=== PATIENT | male | born 1985 | race Caucasian/White ===

== ENCOUNTER 2020-01-02 21:53 | Emergency (ER) | payer BC ==
--- NOTE | 2020-01-02 22:28 | ER ---
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 Abrasion noted to the right wrist, pt states he needs a tetanus booster. Coronavirus screen: Proceed with normal triage. Ebola Screen: Patient negative for fever greater than or equal to 101.5 degrees Fahrenheit, and additional compatible Ebola Virus Disease symptoms Patient denies exposure to infectious person. Patient denies travel to an Ebola-affected area in the 21 days before illness onset. No symptoms or risks identified at this time. Initial Sepsis Screen: Does the patient meet any 2 criteria? No. Patient's initial sepsis screen is negative. Does the patient have a suspected source of infection? No. Patient's initial sepsis screen is negative. Risk Assessment: Do you want to hurt yourself or someone else? Patient reports no desire to harm self or others. Onset of symptoms was January 02, 2020. 22:03 Method Of Arrival: Ambulatory sg 22:03 Acuity: POLY 5 sg Triage Assessment: 22:10 General: Appears in no apparent distress. Behavior is calm, cooperative, appropriate wh for age. Historical: - Allergies: 22:04 No Known Allergies; sg - Home Meds: 22:04 None [Active]; sg - PMHx: 22:04 None; sg - PSHx: 22:04 None; sg - Immunization history:: Adult Immunizations not up to date, Last tetanus immunization: > 10 years ago. - Social history:: Smoking status: Patient denies any tobacco usage or history of. Screenin:10 Abuse screen: Denies threats or abuse. Denies injuries from another. Nutritional wh screening: No deficits noted. Tuberculosis screening: No symptoms or risk factors identified. Fall Risk None identified. Assessment: 22:10 General: Appears in no apparent distress. Behavior is calm, cooperative, appropriate wh for age. Pain: Denies pain. Neuro: Level of Consciousness is awake, alert, obeys commands, Oriented to person, place, time, situation, Appropriate for age. Cardiovascular: Capillary refill < 3 seconds. Respiratory: Airway is patent Respiratory effort is even, unlabored, Respiratory pattern is regular, symmetrical. GI: Abdomen is flat, non-distended. : No signs and/or symptoms were reported regarding the genitourinary system. EENT: No signs and/or symptoms were reported regarding the EENT system. Derm: Skin is intact, is healthy with good turgor, Skin is pink, warm \T\ dry. normal, Superficial laceration on right wrist. Musculoskeletal: Circulation, motion, and sensation intact. Vital Signs: 22:03 BP 136 / 62; Pulse 70; Resp 18; Temp 97.7; Pulse Ox 100% on R/A; Pain 0/10; sg ED Course: 21:59 Patient arrived in ED. cf2 22:01 Donaldo Woody PA is PHCP. cp 22:02 Allen Lopez MD is Attending Physician. roxi 22:02 Christopher Chisholm is Primary Nurse. 22:03 Arm band placed on. sg 22:04 Triage completed. sg 22:08 Patient has correct armband on for positive identification. Pulse ox on. NIBP on. sg 22:27 No provider procedures requiring assistance completed. Patient did not have IV access sg during this emergency room visit. Administered Medications: No medications were administered Outcome: 22:27 Discharge ordered by . 22:27 Medical screen evaluation completed per provider. Patient declined treatment. sg 22:27 Condition: stable 22:27 Instructed on follow up and referral plans. safety practices, wound care. 22:28 Patient left the ED. sg Signatures: Zackary Talbot, RN RN Donaldo Wong PA PA cp Habalo, Winsy Eloise Melton cf2
--- NOTE | 2020-01-02 22:29 | EDPHYS ---
Physician Documentation [facility] Name: Mor Carty Jr Age: 34 yrs Sex: Male : 1985 Arrival Date: 01/02/2020 Time: 21:59 Bed 17 Private MD: ED Physician Allen Lopez HPI: 01/01 22:15 This 34 yrs old Male presents to ER via Ambulatory with complaints of CUT ON cp WRIST. 22:15 The patient or guardian reports a laceration, superficial. 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 Onset: The symptoms/episode began/occurred today. Associated signs and symptoms: Pertinent positives: active bleeding. Historical: - Allergies: 22:04 No Known Allergies; sg - Home Meds: 22:04 None [Active]; sg - PMHx: 22:04 None; sg - PSHx: 22:04 None; sg - Immunization history:: Adult Immunizations not up to date, Last tetanus immunization: > 10 years ago. - Social history:: Smoking status: Patient denies any tobacco usage or history of. ROS: 22:20 Skin: Positive for laceration(s), of the volar surface of right wrist. cp 22:20 Constitutional: Negative for fever. cp 22:20 Respiratory: Negative for cough, wheezing. 22:20 All other systems are negative. cp Exam: 22:22 Skin: injury, laceration(s), the wound is approximately 2.5 cm(s), of the volar cp surface of right wrist, that can be described as clean, linear, without bleeding, superficial. 22:22 Neuro: Sensation: is normal. Vital Signs: 22:03 BP 136 / 62; Pulse 70; Resp 18; Temp 97.7; Pulse Ox 100% on R/A; Pain 0/10; sg MDM: 22:04 Patient medically screened. cp 22:25 Data reviewed: vital signs, nurses notes. cp Administered Medications: No medications were administered Disposition: 22:30 Chart complete. cp 01/02 03:13 Co-signature as Attending Physician, Allen Lopez MD I agree with the assessment and tw4 plan of care. Disposition: 01/02/20 22:27 Discharged to Home as Medical Screen. Impression: Laceration without foreign body of wrist - right, superficial. - Condition is Stable. - Discharge Instructions: Laceration Care, Adult. - Medication Reconciliation Form, Thank You Letter, Antibiotic Education, Prescription Opioid Use form. - Follow up: Private Physician; When: 2 - 3 days; Reason: Wound Recheck, tetanus booster. - Problem is new. - Symptoms are unchanged. Signatures: Zackary Talbot RN RN sg Donaldo Woody PA PA cp Wadley, Terrence, MD MD tw4 Corrections: (The following items were deleted from the chart) 01/01 22:28 22:27 01/02/2020 22:27 Discharged to Home as Medical Screen. Impression: Laceration sg without foreign body of wrist - right, superficial. Condition is Stable. Forms are Medication Reconciliation Form, Thank You Letter, Antibiotic Education, Prescription Opioid Use. Follow up: Private Physician; When: 2 - 3 days; Reason: Wound Recheck, tetanus booster. Problem is new. Symptoms are unchanged. cp
[2020-01-02 22:35] VITALS: BP 136/62; TEMP 97.7; O2SAT 100
== END 2020-01-02 22:28 | disposition home or self-care (01) ==
LOC: ER 21:53
DX: S61.511A Laceration without foreign body of right wrist, initial encounter (principal); W26.8XXA Contact with other sharp object(s), not elsewhere classified, initial encounter; Y93.89 Activity, other specified; Y92.017 Garden or yard in single-family (private) house as the place of occurrence of the external cause
CPT/HCPCS: 99283

== ENCOUNTER 2023-06-18 21:48 | Emergency (ER) | payer BC ==
--- OUTSIDE RECORDS SUMMARY | 2023-06-18 21:52 | XMS REPORT | Continuity of Care Document ---
:1985 Author Organization [facility] t Address [address] [facility] [address] [place] [address] Care Team Providers Name Role Phone Tong Ha Lauren Primary Care Physician Lilia PAL, Elva Hager Attending Clinician Unavailable Only, Ang Db Test Attending Clinician Unavailable Unknown, Attending Attending Clinician Unavailable UNKNOWN, ATTENDING Attending Clinician Unavailable Payers Payer Name Policy Type Policy Number Effective Date Expiration Date S ource Problems This patient has no known problems. Allergies, Adverse Reactions, Alerts Allergy Allergy Status Severity Reaction(s) Onset Inactive Treating Comm ents Source Name Type Date Date Clinician NO KNOWN Drug Active [facility] ALLERGIE Class [facility] [place] [place] Social History Social Habit Start Date Stop Date Quantity Comments Source Exposure to Not sure [facility] SARS-CoV-2 (event) [facility] Branch Sex Assigned At [birth year] [facility] 00:00:00 00:00:00 [facility] Smoking Status Start Date Stop Date Source Unknown if ever smoked [facility] Medications This patient has no known medications. Procedures This patient has no known procedures. Encounters Start End Encounter Admission Attending Care Care Encounter Source Date/Time Date/Time Type Type Clinicians Facility Department ID 2021-03-21 2021-03-21 Letter NAZARIO Rodrigues [id number] [facility] 00:00:00 00:00:00 (Out) Elva AGUILA [id number] [facility] [id number] Met[place] as [id number] [address] 2021-03-19 2021-03-19 Outpatient [facility] [id number] [facility] 14:00:00 14:00:00 [id number] 2021-03-19 2021-03-19 Laboratory Only, Ang Db Test [facility] [id number] [facility] 13:41:56 13:56:56 Only Unknown, Attending [facility] [id number] [facility] [id number] Meet as Ernesto?Blea [id number] [facility] [address] Medical Office Building 2021-03-19 2021-03-19 Outpatient R UNKNOWN, [facility] [id number] [facility] 13:45:00 13:45:00 ATTENDING ity [facility] Results This patient has no known results.
--- NOTE | 2023-06-19 00:45 | EDPHYS ---
Physician Documentation [facility] Name: Mor Carty Jr Age: 38 yrs Sex: Male : 1985 Arrival Date: 06/18/2023 Time: 21:48 Bed IW4 Private MD: ED Physician Zeferino Silver HPI: 06/18 22:50 This 38 yrs old Male presents to ER via Ambulatory with complaints of Flu Symptoms. cp 22:50 The patient or guardian reports cough, that is intermittent, flu symptoms, low-grade cp fever, body aches. 22:50 Onset: The symptoms/episode began/occurred 2 day(s) ago. Associated signs and symptoms: cp Pertinent positives: sore throat, Pertinent negatives: diarrhea, vomiting. Severity of symptoms: in the emergency department the symptoms are unchanged despite home interventions. Historical: - Allergies: 22:38 No Known Allergies; bp - Home Meds: 22:38 None [Active]; bp - PMHx: 22:38 None; bp - Immunization history:: Adult Immunizations up to date. - Social history:: Smoking status: Patient denies any tobacco usage or history of. ROS: 22:55 Constitutional: Positive for body aches, fever, Negative for poor PO intake, cp 22:55 Eyes: Negative for injury, pain, redness, and discharge, cp 22:55 ENT: Positive for sore throat, Negative for drainage from ear(s), ear pain, difficulty swallowing, difficulty handling secretions, 22:55 Respiratory: Positive for cough, Negative for shortness of breath, wheezing, 22:55 Abdomen/GI: Negative for abdominal pain, vomiting, diarrhea, constipation, 22:55 Skin: Negative for rash, 22:55 Neuro: Negative for altered mental status, 22:55 All other systems are negative, Exam: 23:00 Constitutional: The patient appears in no acute distress, alert, awake, comfortable, cp non-toxic, well developed, well nourished, 23:00 Head/Face: Normocephalic, atraumatic. cp 23:00 Eyes: Periorbital structures: appear normal, Conjunctiva: normal, no exudate, no injection, Sclera: no appreciated abnormality, Lids and lashes: appear normal, bilaterally, 23:00 ENT: External ear(s): are unremarkable, Ear canal(s): are normal, clear, TM's: dullness, bilaterally, Nose: is normal, Mouth: Lips: moist, Oral mucosa: moist, Posterior pharynx: Tonsils: with erythema, no enlargement, no exudate, erythema, that is mild, exudate, is not appreciated, 23:00 Neck: ROM/movement: is normal, is supple, without pain, no range of motions limitations, no meningismus, 23:00 Chest/axilla: Inspection: normal, 23:00 Cardiovascular: Rate: tachycardic, 23:00 Respiratory: the patient does not display signs of respiratory distress, Respirations: normal, no use of accessory muscles, no retractions, labored breathing, is not present, Breath sounds: decreased breath sounds, are not appreciated, stridor, is not appreciated, wheezing: is not appreciated, 23:00 Abdomen/GI: Exam negative for discomfort, distension, guarding, Inspection: abdomen appears normal, Vital Signs: 22:37 BP 113 / 76; Pulse 100; Resp 16; Temp 99.9; Pulse Ox 100% ; Weight 91.63 kg; Height 5 bp ft. 6 in. ; 22:37 Body Mass Index 32.60 (91.63 kg, 167.64 cm) bp MDM: 22:38 Patient medically screened. 06/19 00:00 Differential diagnosis: bronchitis, flu, pneumonia, COVID-19, strep throat. 00:44 Data reviewed: vital signs, nurses notes, lab test result(s). cp 00:44 Counseling: I had a detailed discussion with the patient and/or guardian regarding the cp historical points, exam findings, and any diagnostic results supporting the discharge/admit diagnosis, lab results, to return to the emergency department if symptoms worsen or persist or if there are any questions or concerns that arise at home. ED course: VSS. Patient appears non-toxic and no signs of respiratory distress. Will discharge to home for continued monitoring. 06/18 22:41 Order name: Flu bp 06/18 22:41 Order name: Strep bp 06/18 22:47 Order name: COVID-19 SARS RT PCR; Complete Time: 00:35 hb 06/19 00:35 Interpretation: Reviewed. cp 06/19 00:45 Order name: Throat Culture EDMS Administered Medications: No medications were administered Disposition Summary: 06/19/23 00:44 Discharge Ordered Notes: Location: Home cp Problem: new cp Symptoms: are unchanged cp Condition: Stable cp Diagnosis - Influenza due to other identified influenza virus with other respiratory cp manifestations Followup: cp - With: Private Physician - When: 2 - 3 days - Reason: Worsening of condition Discharge Instructions: - Discharge Summary Sheet cp - Influenza, Adult cp - Form - Excuse from Work, School, or Physical Activity cp Forms: - Medication Reconciliation Form cp - Thank You Letter cp - Antibiotic Education cp - Prescription Opioid Use cp - Patient Portal Instructions cp - Leadership Thank You Letter cp - Work release form bp Prescriptions: - Bromfed DM 2-30-10 mg/5 mL Oral syrup - administer 10 milliliter ORAL route every 6 hours as needed for cold symptoms; cp 240 milliliter; Refills: 0, Product Selection Permitted - Ibuprofen 800 mg Oral Tablet - take 1 tablet ORAL route every 8 hours As needed take with food; 30 tablet; cp Refills: 0, Product Selection Permitted - Tamiflu 75 mg Oral capsule - take 1 tablet ORAL route every 12 hours for 5 days; 10 tablet; Refills: 0, cp Product Selection Permitted Addendum: 06/20/2023 12:42 Co-signature as Attending Physician, Zeferino Silver MD I agree with the assessment s p4 and plan of care. I reviewed the patient's care provided by the Advanced Practice Provider and agree with the diagnosis and treatment plan. Signatures: Dispatcher [employer] [facility] Donaldo Woody PA PA cp Peltier, Brian, RN RN Zeferino York MD MD sp4 Corrections: (The following items were deleted from the chart) 06/18 23:32 22:41 SARS-COV-2 Antigen Rapid+I.LAB.BRZ ordered. [facility] 06/19 23:27 23:25 Constitutional: Positive for fever, cp cp
--- NOTE | 2023-06-19 00:45 | ER ---
Nurse's Notes [facility] Name: Mor Carty Jr Age: 38 yrs Sex: Male : 1985 Arrival Date: 06/18/2023 Time: 21:48 Bed IW4 Private MD: Diagnosis: Influenza due to other identified influenza virus with other respiratory manifestations Presentation: 06/18 22:37 Chief complaint: Patient states: FLU-LIKE S/S x2 DAYS, FAMILY EXPOSURE. Coronavirus bp screen: At this time, the client does not indicate any symptoms associated with coronavirus-19. Ebola Screen: No symptoms or risks identified at this time. Initial Sepsis Screen: Does the patient meet any 2 criteria? No. Patient's initial sepsis screen is negative. Does the patient have a suspected source of infection? No. Patient's initial sepsis screen is negative. Risk Assessment: Do you want to hurt yourself or someone else? Patient reports no desire to harm self or others. Onset of symptoms is unknown. 22:37 Method Of Arrival: Ambulatory bp 22:37 Acuity: POLY 4 bp Triage Assessment: 22:38 General: Appears in no apparent distress. Behavior is calm, cooperative, appropriate bp for age. Pain: Denies pain. Historical: - Allergies: 22:38 No Known Allergies; bp - Home Meds: 22:38 None [Active]; bp - PMHx: 22:38 None; bp - Immunization history:: Adult Immunizations up to date. - Social history:: Smoking status: Patient denies any tobacco usage or history of. Screenin/28 01:02 [facility] ED Fall Risk Assessment (Adult) History of falling in the last 3 months, bp including since admission No falls in past 3 months (0 pts). Abuse screen: Denies threats or abuse. Denies injuries from another. Nutritional screening: No deficits noted. Tuberculosis screening: No symptoms or risk factors identified. Vital Signs: 06/18 22:37 BP 113 / 76; Pulse 100; Resp 16; Temp 99.9; Pulse Ox 100% ; Weight 91.63 kg; Height 5 bp ft. 6 in. ; 22:37 Body Mass Index 32.60 (91.63 kg, 167.64 cm) bp ED Course: 21:52 Patient arrived in ED. ag3 21:55 Donaldo Woody PA is PHCP. cp 21:55 Zeferino Silver MD is Attending Physician. cp 22:38 Triage completed. bp 22:38 Arm band placed on. bp 06/19 01:02 Patient has correct armband on for positive identification. bp 01:02 No provider procedures requiring assistance completed. Patient did not have IV access bp during this emergency room visit. Administered Medications: No medications were administered Outcome: 00:44 Discharge ordered by . cp 01:02 Discharged to home ambulatory, bp 01:02 Condition: stable 01:02 Discharge instructions given to patient, Instructed on discharge instructions, follow up and referral plans. medication usage, Demonstrated understanding of instructions, follow-up care, medications, Prescriptions given X 2, 01:03 Patient left the ED. bp Signatures: Donaldo Woody PA PA cp Peltier, Brian, RN RN bp Mimi Olivo ag3
[2023-06-19 01:22] VITALS: BP 113/76; TEMP 99.9; O2SAT 100
== END 2023-06-19 01:03 | disposition home or self-care (01) ==
LOC: ER 21:48
DX: J10.1 Influenza due to other identified influenza virus with other respiratory manifestations (principal); Z11.52 Encounter for screening for COVID-19
CPT/HCPCS: 87070; 87081; 87635; 87804; 99283

== ENCOUNTER 2024-08-01 22:29 | Emergency (ER) | payer BC ==
--- OUTSIDE RECORDS SUMMARY | 2024-08-01 22:32 | XMS REPORT | Continuity of Care Document ---
Author Name Unknown Address [address] [facility] [address] [place] [address] [facility] thconnect Address [address] [facility] [address] [place] [address] Care Team Providers Care Industrial/Organizational Psychologist Name Role Phone Tong Ha Lauren Primary Care Physician [phone] Lilia PAL, Elva Hager Attending Clinician Unavailab le Only, Ang Db Test Attending Clinician Unavailabl e Unknown, Attending Attending Clinician Unavailab le UNKNOWN, ATTENDING Attending Clinician Unavailab le Payers Payer Name Policy Type Policy Number Effective Date Expirati on Date Source Allergies, Adverse Reactions, Alerts Allergy Name Allergy Type Status Severity Reaction(s) Onset Date Inactive Date Treating Clinician Comments Source NO KNOWN ALLERGIE S Drug Class Active [facility] Social History Social Habit Start Date Stop Date Quantity Comments Source Exposure to SARS-CoV-2 (event) Not sure [facility] Sex Assigned At 1985 00:00:00 1985 00:00:00 [facility] Smoking Status Start Date Stop Date Source Unknown if ever smoked [facility] Encounters Start Date/Time End Date/Time Encounter Type Admission Type Attending Clinicians Care Facility Care Department Encounter ID Source 2021-03-21 00:00:00 2021-03-21 00:00:00 Letter (Out) Elva Rodrigues [facility] [id number] [facility] 2021-03-19 14:00:00 2021-03-19 14:00:00 Outpatient [facility] [id number] [facility] 2021-03-19 13:41:56 2021-03-19 13:56:56 Laboratory Only Only, Ang Db Test Unknown, Attending [facility] Ernesto?[facility] Office [facility] [id number] [facility] 2021-03-19 13:45:00 2021-03-19 13:45:00 Outpatient R UNKNOWN, ATTENDING [facility] [id number] [facility]
[2024-08-01] MEDS ORDERED: DIPHENHYDRAMINE 50 MG/ML VIAL ONE (22:43)
[2024-08-01] MEDS ORDERED: METHYLPREDNISOLONE 125 MG INJ ONE (22:43)
[2024-08-01] MEDS ORDERED: NA CHLORIDE 0.9% 1,000 ML ONE (22:43)
[2024-08-01] MEDS ORDERED: FAMOTIDINE 20 MG/2 ML VIAL IV ONE (22:43)
[2024-08-01] MEDS ORDERED: ONDANSETRON 4 MG/2 ML VIAL ONE (23:13)
--- NOTE | 2024-08-01 23:25 | EDPHYS ---
Physician Documentation [facility] Name: Mor Carty Jr Age: 39 yrs Sex: Male : 1985 Arrival Date: 08/01/2024 Time: 22:29 Bed 20 Private MD: ED Physician Rashard Bone HPI: 08/01 23:13 This 39 yrs old Male presents to ER via Ambulatory with complaints of Allergic Reaction.kb 23:13 Pt is a 39 year old male who presents for redness of skin, itching, vomiting and kb feeling hot that started after eating shrimp one hour ago. States he has never had an allergic reaction to shrimp before. Denies shortness of breath. . Historical: - Allergies: 22:38 NKDA; jb4 22:38 shrimp; jb4 - PMHx: 22:38 None; jb4 - PSHx: 22:38 Endoscopy; jb4 - Immunization history:: Adult Immunizations up to date. - Infectious Disease History:: Denies. - Social history:: Smoking status: Patient denies any tobacco usage or history of. ROS: 23:10 Constitutional: As per HPI kb Exam: 23:10 Constitutional: This is a well developed, well nourished patient who is awake, alert, kb and in no acute distress. Head/Face: Normocephalic, atraumatic. ENT: Moist Mucous membranes Cardiovascular: Regular rate Respiratory: Respirations even and unlabored. No increased work of breathing. Talking in full sentences Abdomen/GI: Soft, non-tender. No distention MS/ Extremity: Pulses equal, no cyanosis. Neurovascular intact. Full, normal range of motion. Neuro: Awake and alert, GCS 15, oriented to person, place, time, and situation. 23:10 Skin: redness of skin to face, neck and upper extremities. Vital Signs: 22:36 BP 134 / 96; Pulse 118; Resp 18; Temp 98(O); Pulse Ox 98% on R/A; Weight 92.99 kg (R); jb4 Height 5 ft. 5 in. (R); Pain 0/10; 23:10 BP 122 / 84; Pulse 92; Resp 18 S; Pulse Ox 98% on R/A; br2 22:36 Body Mass Index 34.11 (92.99 kg, 165.1 cm) jb4 22:36 Pain Scale: Adult jb4 MDM: 22:34 Medical Screening Exam initiated kb 23:12 Differential diagnosis: anaphylaxis, angioedema, urticaria. Data reviewed: vital signs, kb nurses notes. Counseling: I had a detailed discussion with the patient and/or guardian regarding the historical points, exam findings, and any diagnostic results supporting the discharge/admit diagnosis, the need for outpatient follow up, a family practitioner, to return to the emergency department if symptoms worsen or persist or if there are any questions or concerns that arise at home. 08/01 22:35 Order name: IV Start; Complete Time: 22:40 kb Administered Medications: 22:50 Drug: NS 0.9% IV 1000 ml IV at 1000 ml once; to be given as a bolus over 60 minutes br2 Route: IV; Rate: 1000 ml; Site: right antecubital; 23:49 Follow up: Response: No adverse reaction; IV Status: Completed infusion; IV Intake: br2 1000ml 22:50 Drug: Famotidine IVP 20 mg IVP once; dilute with 10 mL 0.9% NaCl; give over 2 minutes br2 Route: IVP; Site: right antecubital; 23:30 Follow up: Response: No adverse reaction br2 22:50 Drug: diphenhydrAMINE IVP 25 mg IVP once Route: IVP; Site: right antecubital; br2 23:30 Follow up: Response: No adverse reaction br2 22:50 Drug: MethylPrednisoLONE IVP 125 mg IVP once Route: IVP; Site: right antecubital; br2 23:30 Follow up: Response: No adverse reaction br2 23:19 Drug: Ondansetron IVP 4 mg IVP once; over 2 minutes Route: IVP; Site: right antecubital;br2 23:50 Follow up: Response: No adverse reaction; Nausea is decreased br2 Disposition Summary: 08/01/24 23:25 Discharge Ordered Notes: Location: Home kb Condition: Stable kb Diagnosis - Allergy to other foods kb Followup: kb - With: Emergency Department - When: As needed - Reason: Worsening of condition Followup: kb - With: Private Physician - When: 2 - 3 days - Reason: Recheck today's complaints, Continuance of care, Re-evaluation by your physician Discharge Instructions: - Discharge Summary Sheet kb - Food Allergy, [id number] kb Forms: - Medication Reconciliation Form kb - Antibiotic Education kb - Prescription Opioid Use kb - Patient Portal Instructions kb - Leadership Thank You Letter kb Prescriptions: - Pepcid 20 mg Oral Tablet - take 1 tablet ORAL route every 12 hours for 5 days; 10 tablet; Refills: 0, kb Product Selection Permitted - Prednisone 20 mg Oral Tablet - take 1 tablet ORAL route once daily for 5 days; 5 tablet; Refills: 0, Product kb Selection Permitted Addendum: 08/03/2024 23:46 I was immediately available for consultation during this patient's visit. I did not e c2 personally see the patient or discuss the patient with the PARMJIT. . Signatures: Meghana Hogue, SHINGLE PACKER-C SHINGLE PACKER-Giovannib Jonah Starks, RN RN jb4 Rashard Bone MD MD ec2 Ofelia Salas RN RN br2
--- NOTE | 2024-08-01 23:25 | ER ---
Nurse's Notes [facility] Name: Mor Carty Jr Age: 39 yrs Sex: Male : 1985 Arrival Date: 08/01/2024 Time: 22:29 Bed 20 Private MD: Diagnosis: Allergy to other foods Presentation: 08/01 22:36 Chief complaint: Patient states: I was eating shrimp around 8pm and about an hour later jb4 I noticed my face was red and then my hands. Coronavirus screen: At this time, the client does not indicate any symptoms associated with coronavirus-19. Ebola Screen: No symptoms or risks identified at this time. Onset: The symptoms/episode began/occurred suddenly, 1.5 hour(s) ago. Anaphylaxis evaluation, no signs or symptoms of anaphylaxis were noted. Initial Sepsis Screen: Does the patient meet any 2 criteria? HR > 90 bpm. Yes Does the patient have a suspected source of infection? No. Patient's initial sepsis screen is negative. Risk Assessment: Do you want to hurt yourself or someone else? Patient reports no desire to harm self or others. Onset of symptoms was August 01, 2024. Transition of care: patient was not received from another setting of care. 22:36 Method Of Arrival: Ambulatory jb4 22:36 Acuity: POLY 3 jb4 Historical: - Allergies: 22:38 NKDA; jb4 22:38 shrimp; jb4 - PMHx: 22:38 None; jb4 - PSHx: 22:38 Endoscopy; jb4 - Immunization history:: Adult Immunizations up to date. - Infectious Disease History:: Denies. - Social history:: Smoking status: Patient denies any tobacco usage or history of. Screenin:30 [facility] ED Fall Risk Assessment (Adult) History of falling in the last 3 months, br2 including since admission No falls in past 3 months (0 pts) Confusion or Disorientation No (0 pts) Intoxicated or Sedated No (0 pts) Impaired Gait No (0 pts) Mobility Assist Device Used No (0 pt) Altered Elimination No (0 pt) Score/Fall Risk Level 0 - 2 = Low Risk Oriented to surroundings. Abuse screen: Denies threats or abuse. Denies injuries from another. Nutritional screening: No deficits noted. Tuberculosis screening: No symptoms or risk factors identified. Assessment: 22:30 Reassessment: Patient and/or family updated on plan of care and expected duration. Pain br2 level reassessed. Patient is alert, oriented x 3, equal unlabored respirations, skin warm/dry/pink. General: Appears uncomfortable, Behavior is calm, cooperative. Pain: Denies pain. Respiratory: Airway is patent Respiratory effort is even, unlabored, Respiratory pattern is regular, symmetrical, Breath sounds are clear bilaterally. Derm: Reports increased redness to face and hands. 23:38 Reassessment: Patient and/or family updated on plan of care and expected duration. Pain br2 level reassessed. Patient is alert, oriented x 3, equal unlabored respirations, skin warm/dry/pink. pending fluids to complete Patient states feeling better. Patient states symptoms have improved. Vital Signs: 22:36 BP 134 / 96; Pulse 118; Resp 18; Temp 98(O); Pulse Ox 98% on R/A; Weight 92.99 kg (R); jb4 Height 5 ft. 5 in. (R); Pain 0/10; 23:10 BP 122 / 84; Pulse 92; Resp 18 S; Pulse Ox 98% on R/A; br2 22:36 Body Mass Index 34.11 (92.99 kg, 165.1 cm) jb4 22:36 Pain Scale: Adult jb4 ED Course: 22:30 Patient has correct armband on for positive identification. Placed in gown. Bed in low br2 position. Call light in reach. Side rails up X 1. Provided Education on: plan of care. 22:34 Patient arrived in ED. jj6 22:34 Rashard Bone MD is Attending Physician. ec2 22:34 Meghana Hogue FNP-C is PHCP. kb 22:35 Meghana Hogue FNP-C is PHCP. kb 22:38 Triage completed. jb4 22:38 Arm band placed on right wrist. jb4 22:40 Ofelia Salas RN is Primary Nurse. br2 22:40 Inserted saline lock: 20 gauge in right antecubital area, using aseptic technique. br2 Blood collected. Flushed with 10 mL NS. 23:49 No provider procedures requiring assistance completed. IV discontinued, intact, br2 bleeding controlled, No redness/swelling at site. Pressure dressing applied. Administered Medications: 22:50 Drug: NS 0.9% IV 1000 ml IV at 1000 ml once; to be given as a bolus over 60 minutes br2 Route: IV; Rate: 1000 ml; Site: right antecubital; 23:49 Follow up: Response: No adverse reaction; IV Status: Completed infusion; IV Intake: br2 1000ml 22:50 Drug: Famotidine IVP 20 mg IVP once; dilute with 10 mL 0.9% NaCl; give over 2 minutes br2 Route: IVP; Site: right antecubital; 23:30 Follow up: Response: No adverse reaction br2 22:50 Drug: diphenhydrAMINE IVP 25 mg IVP once Route: IVP; Site: right antecubital; br2 23:30 Follow up: Response: No adverse reaction br2 22:50 Drug: MethylPrednisoLONE IVP 125 mg IVP once Route: IVP; Site: right antecubital; br2 23:30 Follow up: Response: No adverse reaction br2 23:19 Drug: Ondansetron IVP 4 mg IVP once; over 2 minutes Route: IVP; Site: right antecubital;br2 23:50 Follow up: Response: No adverse reaction; Nausea is decreased br2 Medication: 23:49 VIS not applicable for this client. br2 Intake: 23:49 IV: 1000ml; Total: 1000ml. br2 Outcome: 23:25 Discharge ordered by . kb 23:49 Discharged to home ambulatory, br2 23:49 Condition: good 23:49 Discharge instructions given to patient, Instructed on discharge instructions, follow up and referral plans. medication usage, Demonstrated understanding of instructions, follow-up care, medications, Prescriptions given X 2, 23:52 Patient left the ED. br2 Signatures: Meghana Hogue FNP-C FNP-Jonah Blevins, RN RN jb4 Flor Zuleta jj6 Rashard Bone MD MD ec2 Ofelia Salas RN RN br2
[2024-08-02 00:28] VITALS: BP 134/96; TEMP 98; O2SAT 98
== END 2024-08-01 23:52 | disposition home or self-care (01) ==
LOC: ER 22:29
DX: L29.9 Pruritus, unspecified (principal); R11.10 Vomiting, unspecified; Z91.013 Allergy to seafood
CPT/HCPCS: 96361; 96375; 96374; 99284; J1200; J2919; J2405; J7030